=== PATIENT | female | born 1960 | race Caucasian/White ===

== ENCOUNTER → 2020-05-04 14:08 | Outpatient (CLI) | payer OTHER, SELFPAY ==
--- NOTE | ~2020-05-04 | MM_ITS ---
EXAMINATION: MM screening gee BI w tamie HISTORY: Screening TECHNIQUE: Craniocaudal and mediolateral oblique 3-D tomosynthesis images were obtained and synthetic 2-D images were generated. CAD analysis was submitted and interpreted. COMPARISON: No prior mammogram is available for comparison at this institution. BREAST PARENCHYMAL COMPOSITION: Breast composed of scattered areas of fibroglandular density. FINDINGS: There are bilateral breast asymmetries in the upper outer quadrants. Comparison to prior ou tside mammograms recommended to assess stability. IMPRESSION: 1. Bilateral breast asymmetries. 2. Comparison outside mammograms recommended. BI-RADS Category 0: Incomplete: Needs additional imaging evaluation. Reviewed, dictated and finalized at location D. [employer]
== END ==
PROVIDERS: PCP Internal Medicine; Visit Provider Internal Medicine
DX: Z12.31 Encounter for screening mammogram for malignant neoplasm of breast (principal); R92.8 Other abnormal and inconclusive findings on diagnostic imaging of breast
CPT/HCPCS: 77063; 77067

== ENCOUNTER 2023-05-08 09:34 | Outpatient (CLI) | payer OTHER, SELFPAY ==
--- NOTE | 2023-05-08 11:00 | NEURO_ITS ---
Impression: # Complains of heel pain. # Normal Nerve Conduction Study including motor and sensory (sural, superficial peroneal and saphenous nerves. # No Tarsal Tunnel Syndrome. # Normal needle/EMG exam. # Clinical correlation recommended. Nerve Conduction Studies Anti Sensory Summary Table Stim Site NR Peak (ms) P-T Amp (?V) Site1 Site2 Delta-P (ms) Dist (cm) Benton (m/s) Right Saphenous Anti Sensory (Ant Med Mall) 14cm 3.6 3.9 14cm Ant Med Mall 3.6 16.0 44 Right Sup Fibular Anti Sensory (Ant Lat Mall) 14 cm 3.5 8.7 14 cm Ant Lat Mall 3.5 16.0 46 Right Sural Anti Sensory (Lat Mall) Calf 3.9 17.8 Calf Lat Mall 3.9 16.0 41 Motor Summary Table Stim Site NR Onset (ms) O-P Amp (mV) Site1 Site2 Delta-0 (ms) Dist (cm) Benton (m/s) Right Lateral Plantar Motor (ADM) Med Mall 4.6 0.8 Right Peroneal Motor (Vastus Med) Ankle 4.5 3.5 Popit Ankle 8.2 37.0 45 Popit 12.7 2.5 Right Tibial Motor (Abd Velasco Brev) Ankle 4.4 1.9 Knee Ankle 9.4 39.0 41 Knee 13.8 1.6 F Wave Studies NR F-Lat (ms) L-R F-Lat (ms) Right Peroneal (Mrkrs) (EDB) 48.91 Right Tibial (Mrkrs) (Abd Hallucis) 49.78 EMG Side Muscle Nerve Root Ins Act Fibs Amp Dur Recrt Comment Right AntTibialis Dp Br Fibular L4-5 Nml Nml Nml Nml Nml Right Gastroc Tibial S1-2 Nml Nml Nml Nml Nml Right Fibularis Long Sup Br Fibular L5-S1 Nml Nml Nml Nml Nml Right Flex Dig Long Tibial L5-S2 Nml Nml Nml Nml Nml Right Ext Dig Brev Dp Br Fibular L5, S1 Nml Nml Nml Nml Nml MTDD
== END 2023-05-08 09:35 | disposition home or self-care (01) ==
PROVIDERS: PCP Internal Medicine; Visit Provider Podiatrist Foot & Ankle Surgery
DX: G57.51 Tarsal tunnel syndrome, right lower limb (principal)
CPT/HCPCS: 95886; 95909